=== PATIENT | male | born 1985 | race African-American/Black ===

== ENCOUNTER 2016-04-19 17:53 | Emergency (ER) | payer MEDICAID ==
[~2016-04-19] VITALS: Ht 182.9 cm; Wt 66.0 kg
[2016-04-19] MEDS ORDERED: ACETAMINOPHEN 325MG TABLET PO ONE (20:00)
[2016-04-19 20:23] VITALS: BP 118/88
== END 2016-04-19 21:03 | disposition home or self-care (01) ==
LOC: ER 17:57
DX: J20.9 Acute bronchitis, unspecified (principal); F12.10 Cannabis abuse, uncomplicated
CPT/HCPCS: 99282

== ENCOUNTER 2016-05-09 19:00 | Emergency (ER) | payer MEDICAID | END 2016-05-09 21:03 | disposition left against medical advice (07) | LOC: ER 21:01 | DX: Z53.21 Procedure and treatment not carried out due to patient leaving prior to being seen by health care provider (principal) ==